=== PATIENT | female | born 1985 | race Caucasian/White ===

== ENCOUNTER 2017-08-24 11:06 | Emergency (ER) | payer OTHER ==
[2017-08-24 11:26] VITALS: BMI 20.9
[2017-08-24] MEDS ORDERED: Sodium Chloride 0.9% 1,000 ML IV ONE (12:55)
--- NOTE | 2017-08-24 13:01 | C.PDOC ---
History Of Present Illness 31-year-old female, presents to the emergency department with complaining of bilateral diffuse leg pain since yesterday. patient states she is currently seven weeks . States today she also felt like her heart was racing. Denies chest pain, shortness of breath, cough, fever. Patient called her OBGYN who instructed her to come to the ER. Of note, patient has been walking for exercise for the past four days. Time Seen by Provider: 08/24/17 12:03 Chief Complaint (Nursing): Lower Extremity Problem/Injury History Per: Patient History/Exam Limitations: no limitations Past Medical History Reviewed: Historical Data, Nursing Documentation, Vital Signs Vital Signs: Last Vital Signs Temp 98.7 F 08/24/17 15:08 Pulse 82 08/24/17 15:08 Resp 18 08/24/17 15:08 BP 100/69 08/24/17 15:08 Pulse Ox 99 08/24/17 15:08 Family History: States: No Known Family Hx - Social History Hx Alcohol Use: No Hx Substance Use: No - Immunization History Hx Tetanus Toxoid Vaccination: No Hx Influenza Vaccination: No Hx Pneumococcal Vaccination: No Review Of Systems Except As Marked, All Systems Reviewed And Found Negative. Constitutional: Negative for: Fever, Chills Respiratory: Negative for: Cough, Shortness of Breath Gastrointestinal: Negative for: Nausea, Vomiting, Abdominal Pain Genitourinary: Negative for: Dysuria, Vaginal Bleeding, Pelvic Pain Musculoskeletal: Positive for: Leg Pain Skin: Negative for: Rash Neurological: Negative for: Weakness, Numbness, Headache, Dizziness Physical Exam - Physical Exam Appears: Non-toxic, No Acute Distress Skin: Normal Color, Warm, Dry, No Rash Head: Normacephalic Eye(s): bilateral: Normal Inspection, PERRL Nose: Normal Oral Mucosa: Moist Lips: Normal Appearing Neck: Normal ROM Chest: Symmetrical Cardiovascular: Rhythm Regular, No Murmur Respiratory: Normal Breath Sounds, No Accessory Muscle Use Gastrointestinal/Abdominal: Soft, No Tenderness, No Guarding, No Rebound Extremity: Normal ROM Neurological/Psych: Oriented x3, Normal Speech ED Course And Treatment - Laboratory Results Result Diagrams: 08/24/17 13:39 08/24/17 13:39 O2 Sat by Pulse Oximetry: 100 (RA) Pulse Ox Interpretation: Normal Progress Note: EKG, bloodwork, and doppler ordered and reviewed. Patient treated with IVFs. On reassessment, patient appeaes comfortable, doppler is negative. Patient will be discharged for outpatient f/u with Dr Gutierrez in office. Disposition Counseled Patient/Family Regarding: Diagnosis, Need For Followup - Disposition Referrals: Bri Gutierrez MD [Staff Provider] - Disposition: HOME/ ROUTINE Disposition Time: 14:50 Condition: STABLE Additional Instructions: FOLLOW UP WITH DR GUTIERREZ NEXT WEEK SCHEDULED RETURN TO ER IF SYMPTOMS WORSEN Forms: [facility] (Divehi), General Discharge Instructions Print Language: GUINEAN - Clinical Impression Clinical Impression: Leg pain, - Scribe Statement The provider has reviewed the documentation as recorded by the Scribe (Jordyn Ward) All medical record entries made by the Scribe were at my direction and personally dictated by me. I have reviewed the chart and agree that the record accurately reflects my personal performance of the history, physical exam, medical decision making, and the department course for this patient. I have also personally directed, reviewed, and agree with the discharge instructions and disposition.
[2017-08-24] MEDS ORDERED: Sodium Chloride 0.9% 1,000 ML ONE (13:17)
[2017-08-24 13:47] LABS: BASO # 0.1 K/uL (0.0-0.2); BASO % 0.8 % (0.0-2.0); EOS # 0.2 K/uL (0.0-0.7); EOS % 2.5 % (0.0-4.0); HEMOGLOBIN 12.1 g/dL (11.0-16.0); LYMPH # 2.6 K/uL (1.0-4.3); LYMPH % 28.4 % (20.0-40.0); MEAN CELL VOLUME 88.8 fL (81.0-99.0); MEAN CORPUSCULAR HEMOGLOBIN 30.9 pg (27.0-31.0); MEAN CORPUSCULAR HGB CONC 34.8 g/dL (33.0-37.0); MEAN PLATELET VOLUME 8.9 fL (7.2-11.7); MONO # 0.6 K/uL (0.0-0.8); MONO % 6.9 % (0.0-10.0); NEUT # 5.6 K/uL (1.8-7.0); NEUT % 61.4 % (50.0-75.0); NRBC % 0.1 % (0.0-2.0); RBC 3.93 Mil/uL (3.80-5.20); RED CELL DISTRIBUTION WIDTH 12.9 % (11.5-14.5); WHITE BLOOD COUNT 9.1 K/uL (4.8-10.8)
[2017-08-24 14:05] LABS: ALB/GLOB RATIO 1.2 (1.0-2.1); ALBUMIN 4.2 g/dL (3.5-5.0); ALT/SGPT 26 U/L (9-52); AST/SGOT 23 U/L (14-36); BLOOD UREA NITROGEN 8 mg/dL (7-17); GFR AFRICAN-AMERICAN > 60; GFR NON-AFRICAN AMERICAN > 60
--- NOTE | 2017-08-24 14:55 | VASCLAB ---
PROCEDURE: Lower Extremity Venous Duplex Exam. HISTORY: B/L LEG PAIN, , R/O DVT PRIORS: None. TECHNIQUE: Bilateral common femoral, femoral, popliteal and posterior tibial, peroneal and great saphenous veins were evaluated. Flow was assessed with color Doppler, compressibility, assessment of phasic flow and augmentation response. Report prepared by Brendon Morrison, BS, RVT FINDINGS: RIGHT: 1. Common Femoral Vein: 1.1. Compressibility - Fully compressible: Thrombus - None : Flow - Phasic: Augmentation -Normal: Reflux - None. 2. Femoral Vein: 2.1. Compressibility - Fully compressible: Thrombus - None : Flow - Phasic: Augmentation -Normal: Reflux - None. 3. Popliteal Vein: 3.1. Compressibility - Fully compressible: Thrombus - None : Flow - Phasic: Augmentation -Normal: Reflux - None. 4. Posterior Tibial Vein: 4.1. Compressibility - Fully compressible: Thrombus - None: Flow - Phasic: Augmentation -Normal: Reflux - None. 5. Peroneal Vein: 5.1. Compressibility - Fully compressible: Thrombus - None: Flow - Phasic: Augmentation -Normal: Reflux - None. 6. Great Saphenous Vein: 6.1. Compressibility - Fully compressible: Thrombus - None: Flow - Phasic: Augmentation - Normal: Reflux - None. LEFT: 1. Common Femoral Vein: 1.1. Compressibility - Fully compressible: Thrombus - None: Flow - Phasic: Augmentation -Normal: Reflux - None. 2. Femoral Vein: 2.1. Compressibility - Fully compressible: Thrombus - None: Flow - Phasic: Augmentation -Normal: Reflux - None. 3. Popliteal Vein: 3.1. Compressibility - Fully compressible: Thrombus - None : Flow - Phasic: Augmentation -Normal: Reflux - None. 4. Posterior Tibial Vein: 4.1. Compressibility - Fully compressible: Thrombus - None: Flow - Phasic: Augmentation -Normal: Reflux - None. 5. Peroneal Vein: 5.1. Compressibility - Fully compressible: Thrombus - None: Flow - Phasic: Augmentation -Normal: Reflux - None. 6. Great Saphenous Vein: 6.1. Compressibility - Fully compressible: Thrombus - None: Flow - Phasic: Augmentation - Normal: Reflux - None. OTHER FINDINGS: Right: None significant. Left: None significant. IMPRESSION: Right: No evidence of deep or superficial vein thrombosis of the right lower extremity. Normal valve function noted of the right side. Left: No evidence of deep or superficial vein thrombosis of the left lower extremity. Normal valve function noted of the left side.
[2017-08-24 15:09] VITALS: BP 100/69; PULSE 82; RESP 18; TEMP 98.7
[2017-08-24 17:11] VITALS: O2SAT 100
--- NOTE | 2017-08-24 17:23 | CP.PCM.CON ---
History of Present Illness - History of Present Illness History of Present Illness: 31 y/o @ 7wks GA c/o of cheastp discofomrt, nause, vomitng, weakness and leg pain that started this morning. pt called obgyn and referred to er for furhter evlatuin. During evuation pt reports feelings better and states chest pressure has spontanuely resolved. pt dneis any more legt pain, vb, dizyness, heart burn, bowel or bladder complaints OB: P0 PLY BANDER: Dneis hx of abormal pa, fibroids, ovairna cyst, SIT PMH: dnies PHS: denies FHX: non contribtoyr MEDS: PNV NKDA SHX: negative etoh/tobaco/drugs Review of Systems - Constitutional Constitutional: As Per HPI - EENT Eyes: As Per HPI - Breasts Breasts: As Per HPI - Cardiovascular Cardiovascular: As Per HPI - Respiratory Respiratory: As Per HPI - Gastrointestinal Gastrointestinal: As Per HPI - Genitourinary Genitourinary: As Per HPI - Reproductive: Female Reproductive:Female: As Per HPI - Menstruation Menstruation: As Per HPI Past Patient History - Infectious Disease Hx of Infectious Diseases: None - Tetanus Immunizations Tetanus Immunization: Unknown - Past Social History Smoking Status: Never Smoked Chewing Tobacco Use: No Cigar Use: No - PSYCHIATRIC Hx Substance Use: No - SURGICAL HISTORY Hx Surgeries: Yes Other/Comment: 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 Meds Allergies/Adverse Reactions: Allergies Allergy/AdvReac Type Severity Reaction Status Date / Time No Known Allergies Allergy Verified 08/24/17 11:25 Physical Exam - Constitutional Appears: Well, Non-toxic - Head Exam Head Exam: ATRAUMATIC, NORMAL INSPECTION - Eye Exam Eye Exam: EOMI, Normal appearance - ENT Exam ENT Exam: Mucous Membranes Moist, Normal Exam - Neck Exam Neck exam: Positive for: Normal Inspection - Respiratory Exam Respiratory Exam: Clear to Auscultation Bilateral, NORMAL BREATHING PATTERN - Cardiovascular Exam Cardiovascular Exam: REGULAR RHYTHM, +S1, +S2 - GI/Abdominal Exam GI & Abdominal Exam: Normal Bowel Sounds, Soft Additional comments: no guaridng, no rebound tendernes,s no rigidty - Extremities Exam Extremities exam: Positive for: normal inspection Additional comments: negative homans sign, negaitve calf tendnernss Results - Vital Signs Recent Vital Signs: Last Vital Signs Temp 98.7 F 08/24/17 15:08 Pulse 82 08/24/17 15:08 Resp 18 08/24/17 15:08 BP 100/69 08/24/17 15:08 Pulse Ox 100 08/24/17 17:13 - Labs Result Diagrams: 08/24/17 13:39 08/24/17 13:39 Labs: Laboratory Results - last 24 hr 08/24/17 08/24/17 13:39 13:39 WBC 9.1 RBC 3.93 Hgb 12.1 Hct 34.9 MCV 88.8 MCH 30.9 MCHC 34.8 RDW 12.9 Plt Count 254 MPV 8.9 Neut % (Auto) 61.4 Lymph % (Auto) 28.4 [place] % (Auto) 6.9 Eos % (Auto) 2.5 Baso % (Auto) 0.8 Neut # (Auto) 5.6 Lymph # (Auto) 2.6 [place] # (Auto) 0.6 Eos # (Auto) 0.2 Baso # (Auto) 0.1 Sodium 136 Potassium 4.1 Chloride 101 Carbon Dioxide 23 Anion Gap 16 BUN 8 Creatinine 0.4 L Est GFR ( Amer) > 60 Est GFR (Non-Af Amer) > 60 Random Glucose 71 Calcium 9.0 Total Bilirubin 0.3 AST 23 ALT 26 Alkaline Phosphatase 58 Total Creatine Kinase 34 Total Protein 7.7 Albumin 4.2 Globulin 3.5 Albumin/Globulin Ratio 1.2 TSH 3rd Generation 2.08 Assessment & Plan (1) Leg pain Assessment and Plan: 31 y/o ~ 7 wks GA with non specific chest discomfort and loewr extemrie pain -Labs; CBC, CMP -EKG -Lower extremity doppler venoucse -IVH - Pt reevaluated after venous doppler which was normal and reports feelign better , requesting dc dc home has follow up with obgyn 1 week cont pnv vitmain b6/diclegts, zofran for naues, vomitng: pt adivesd r/b//di zofran not lmited to oral cleft lip and palate defects Status: Acute (2) Status: Acute
--- NOTE | 2017-08-27 12:35 | CARD ---
APPROVED REPORT EKG Measurement Heart [id number] <Conclusion> Normal sinus rhythm Possible Left atrial enlargement Borderline ECG
== END 2017-08-24 15:09 | disposition home or self-care (01) ==
LOC: C.ER 11:06
DX: O26.91 Pregnancy related conditions, unspecified, first trimester (principal); M79.605 Pain in left leg; M79.604 Pain in right leg; R07.9 Chest pain, unspecified; Z3A.01 Less than 8 weeks gestation of pregnancy